=== PATIENT | male | born 1970 | race Caucasian/White ===

== ENCOUNTER 2020-08-29 15:26 | Emergency (ER) | payer OTHER ==
[~2020-08-29] VITALS: Ht 180.3 cm; Wt 104.3 kg
[2020-08-29] MEDS ORDERED: HUMULIN N100 UNIT/3 SUBQ (15:31)
[2020-08-29] MEDS ORDERED: APIDRA SUBQ (15:32)
[2020-08-29 16:30] VITALS: BP 230/118
== END 2020-08-29 16:31 | disposition home or self-care (01) ==
LOC: M.ERS 15:26
DX: E10.649 Type 1 diabetes mellitus with hypoglycemia without coma (principal); I10 Essential (primary) hypertension; V47.5XXA Car driver injured in collision with fixed or stationary object in traffic accident, initial encounter; Y93.I9 Activity, other involving external motion; Y92.89 Other specified places as the place of occurrence of the external cause; Y99.8 Other external cause status